=== PATIENT | male | born 1940 | race Caucasian/White ===

== ENCOUNTER 2018-05-14 09:34 | Emergency (ER) | payer OTHER ==
[2018-05-14] MEDS: LIDOCAINE 1% (MDV) 10 ML INJ INJ (11:23)
[2018-05-14] MEDS: LIDOCAINE 1% (MPF) 5 ML VIAL INJ (11:23)
[2018-05-14] MEDS: HYDROCODONE/APAP (5/325) TAB PO (12:37)
[2018-05-14] MEDS: DIPHTH/TET/ACEL PERTUSS (ADULT) 0.5 ML VIAL IM* (12:38)
[2018-05-14] MEDS: AMOXICILLIN/CLAV 875 MG TAB PO (12:48)
== END 2018-05-14 12:30 | disposition home or self-care (01) ==
LOC: E/R 09:34
DX: S61.312A Laceration without foreign body of right middle finger with damage to nail, initial encounter (principal); S60.414A Abrasion of right ring finger, initial encounter; I10 Essential (primary) hypertension; J44.9 Chronic obstructive pulmonary disease, unspecified; W31.2XXA Contact with powered woodworking and forming machines, initial encounter; Y92.9 Unspecified place or not applicable; Z23 Encounter for immunization
CPT/HCPCS: 11760; 73140; 90471; 90715; 99283-25